=== PATIENT | male | born 2000 | race Two or more races ===

== ENCOUNTER 2023-03-03 08:28 | Outpatient (OUT) | payer OTHER, SELFPAY ==
--- NOTE | 2023-03-03 08:46 | XR_ITS ---
The [address] [address] Patient Name: ARTUR LUNA MRN: [id number] date: 2000 Sex: M Assigned Patient Location: RAD Current Patient Location: RAD Accession/Order Number: [id number] Exam Date: 03/03/2023 09:10 Report Date: 03/03/2023 10:23 At the request of: SHADY DEL CASTILLO Procedure: XR ankle LT min 3V PROCEDURE: XR ankle LT min 3V COMPARISON: None. HISTORY: Ankle Pain FINDINGS: BONES:No fracture, acute abnormality, or significant arthropathy. SOFT TISSUES:Negative. No visible soft tissue swelling. EFFUSION:None visible. OTHER: Negative. XR/XR ankle LT min 3V IMPRESSION: No acute radiographic abnormality Electronically authenticated by: ALVIN MAHONEY Date: 03/03/2023 10:23
== END 2023-03-03 08:29 | disposition home or self-care (01) ==
LOC: RAD 08:34
PROVIDERS: Visit Provider Orthopaedic Surgery
DX: M25.572 Pain in left ankle and joints of left foot (principal)
CPT/HCPCS: 73610